=== PATIENT | female | born 1970 | race Caucasian/White ===

== ENCOUNTER 2018-04-01 14:29 | Outpatient (REF) | payer MEDICAID, SELFPAY ==
[2018-04-01 18:49] LABS: ALT 36 U/L (12-78); AST 16 U/L (15-37); Albumin 3.8 g/dL (3.4-5.0); Alkaline Phosphatase 82 U/L (46-116); Anion Gap 11.5 mmol/L (3-11); BUN 14 mg/dL (7-18); Bilirubin, Total 0.4 mg/dL (0.2-1.0); CO2 26.5 mmol/L (21.0-32.0); CREATININE 0.63 mg/dL (0.55-1.02); Chloride 101 mmol/L (98-107); Glucose 82 mg/dL (70-100); Potassium 4.1 mmol/L (3.5-5.1); Sodium 139 mmol/L (136-145); Total Protein 7.3 g/dL (6.4-8.2)
[2018-04-01 19:00] LABS: Abs Immature Grans 0.03 k/cumm (0.0-0.09); Absolute Basophil Count 0.03 k/cumm (0.0-0.2); Absolute Eosinophil Count 0.05 k/cumm (0.0-0.7); Absolute Lymphocyte Count 2.31 k/cumm (1.2-3.4); Basophils % 0.2; Eosinophils % 0.3; HGB 14.4 g/dL (12.0-15.5); Immature Grans % 0.2; Lymphocytes % 14.3; Mean Corp. HGB Concentration 34.3 g/dL (32.0-36.0); Mean Corpuscular Hemoglobin 32.5 pg (27.0-33.0); Mean Corpuscular Volume 94.8 fL (80-95); Monocytes % 8.9; Neutrophils % 76.1; Platelet Count 270 x1000/uL (130-400); RBC 4.43 m/cumm (4.00-5.20); RBC Distribution Width 13.6 % (11.7-14.6); White Blood Cell Count 16.15 k/cumm (4.4-10.8)
[2018-04-01 19:29] LABS: Absolute Monocyte Count 1.44 k/cumm (0.11-0.7); Absolute Neutrophil Count 12.29 k/cumm (1.2-6.7)
[2018-04-01 21:04] LABS: Hemoglobin A1C 5.5 % (4.5-6.2)
== END 2018-04-01 14:49 ==
LOC: NCHCN 14:29
PROVIDERS: PCP Nurse Practitioner; Visit Provider Nurse Practitioner
DX: R63.4 Abnormal weight loss (principal)
CPT/HCPCS: 80053; 83036; 84443; 85025

== ENCOUNTER 2018-04-08 00:55 | Outpatient (CLI) | payer MEDICAID, SELFPAY ==
--- NOTE | 2018-04-08 12:25 | DI.MAMMO_ITS ---
SYMPTOMS/DIAGNOSIS: BREAST CA SCREENING, Z12.39 MAMMOGRAMS: Mammograms were interpreted according to the usual protocol including computer analysis with CAD system, tomosynthesis and C view imaging. Comparison is with the prior examinations. No masses or microcalcifications are seen. There is nothing to suggest malignancy. IMPRESSION: Negative mammogram. Routine screening is recommended. Category 1 , breast density D. MQSA ASSESSMENT OF FINDINGS: Negative. Category 1. Patient will receive a letter notifying them of these results. BI-RADS category D. The breasts are extremely dense, which lowers the sensitivity of mammography.
== END 2018-04-08 01:15 ==
PROVIDERS: PCP Nurse Practitioner; Visit Provider Nurse Practitioner
DX: Z12.31 Encounter for screening mammogram for malignant neoplasm of breast (principal)
CPT/HCPCS: 77063; 77067

== ENCOUNTER 2019-01-01 08:51 | Outpatient (CLI) | payer MEDICAID, SELFPAY | END 2019-01-01 09:11 | PROVIDERS: PCP Nurse Practitioner; Visit Provider Nurse Practitioner Family | DX: F11.20 Opioid dependence, uncomplicated (principal) | CPT/HCPCS: 93005; 93010 ==

== ENCOUNTER 2019-03-25 10:48 | Outpatient (REF) | payer MEDICAID, SELFPAY ==
[2019-03-25 19:27] LABS: Abs Immature Grans 0.03 k/cumm (0.0-0.09); Absolute Basophil Count 0.03 k/cumm (0.0-0.2); Absolute Eosinophil Count 0.19 k/cumm (0.0-0.7); Absolute Lymphocyte Count 1.58 k/cumm (1.2-3.4); Absolute Monocyte Count 0.96 k/cumm (0.11-0.7); Absolute Neutrophil Count 10.18 k/cumm (1.2-6.7); Basophils % 0.2; Eosinophils % 1.5; HCT 40.7 % (36.0-46.0); Immature Grans % 0.2; Lymphocytes % 12.2; Mean Corp. HGB Concentration 34.4 g/dL (32.0-36.0); Mean Corpuscular Hemoglobin 32.1 pg (27.0-33.0); Mean Corpuscular Volume 93.3 fL (80-95); Mean Platelet Volume 9.8 fL (8.0-11.0); Monocytes % 7.4; Neutrophils % 78.5; Platelet Count 273 x1000/uL (130-400); RBC 4.36 m/cumm (4.00-5.20); RBC Distribution Width 13.5 % (11.7-14.6); White Blood Cell Count 12.97 k/cumm (4.4-10.8)
[2019-03-25 19:54] LABS: ALT 17 U/L (14-59); AST 18 U/L (15-37); Albumin 3.6 g/dL (3.4-5.0); Alkaline Phosphatase 100 U/L (46-116); Anion Gap 11.8 mmol/L (3-11); BUN 5 mg/dL (7-18); Bilirubin, Total 0.4 mg/dL (0.2-1.0); CO2 28.2 mmol/L (21.0-32.0); CREATININE 0.56 mg/dL (0.55-1.02); Calcium 8.9 mg/dL (8.5-10.1); Chloride 102 mmol/L (98-107); Glucose 98 mg/dL (70-100); Potassium 3.5 mmol/L (3.5-5.1); Sodium 142 mmol/L (136-145); Total Protein 7.1 g/dL (6.4-8.2)
== END 2019-03-25 11:08 ==
LOC: NCHCN 10:48
PROVIDERS: PCP Nurse Practitioner; Visit Provider Nurse Practitioner
DX: R53.83 Other fatigue (principal); R63.4 Abnormal weight loss
CPT/HCPCS: 80053; 84443; 85025

== ENCOUNTER 2019-03-25 17:27 | Emergency (ER) | payer MEDICAID, SELFPAY ==
--- NOTE | 2019-03-25 18:01 | ED.GENADUL_ITS ---
Discharge Plan Disposition Patient Disposition: HOME Condition: Improving Discharge Details Chief Complaint: Laceration Clinical Impression: Laceration of hand, left Primary Care Provider: Lorie Centeno ED Provider: Chapo Mcbride Home Meds and New Rx's Prescriptions: Continued amitriptyline 75 MG tablet 75 mg PO TAKE TWO TABS AT HS RF: 0 promethazine [Phenergan] 25 MG/1 ML solution 25 mg PO Q6H PRN RF: 0 ketotifen fumarate 5 ML drops 1 drp Ophthalmic PRN RF: 0 lysine 1,000 MG tablet 1,000 mg PO DAILY RF: 0 cetirizine 10 MG tablet 10 mg PO DAILY RF: 0 diltiazem HCl 240 MG capsule,extended release 24 hr 240 mg PO DAILY RF: 0 hydrocortisone 30 GM ointment 1 - 2 ea Topical DAILY PRN PRNRF: 0 clobetasol 15 GM cream 1 ea Topical BID PRN PRNRF: 0 omeprazole 40 MG capsule,delayed release(DR/EC) 40 mg PO DAILY RF: 0 propranolol 10 MG tablet 10 mg PO BID RF: 0 Discharge Instructions Instructions: Laceration (ED) Additional Instructions: Return in 7 to 10 days time for suture removal. Return sooner if you have a fever, foul-smelling discharge from the wound, redness or swelling, or any other acute concerns. Continue your regular medications. May use Tylenol if needed for pain. Medical Decision Making 48-year-old female cut her left hand webbing between the index and thumb on the volar surface at home on broken porcelain. Her tetanus is up-to-date. Anesthetized, irrigated, examined in a bloodless field without evidence of foreign body. Repaired with 6 interrupted sutures. Dressed. Patient stable for discharge to home. She understands homecare/return instructions. HPI General Mode of arrival: ambulatory . Date/Time Provider Initiated Documentation: 03/25/19 17:57 . Limitations to Documentation: no limitations . Information obtained by: patient . History of Present Illness 48 year old F presents to the emergency department with the chief complaint of Left hand laceration, no numbness or tingling, no weakness, Quality is described as dull and constant, and is localized to the left and upper extremity. Patient reports no radiation. Patient started experiencing this minute(s) and it has been constant. No relieving factors improve symptom(s), No exacerbating factors reported . Patient did receive the following treatments prior to arrival, other (Pressure at home) Related Data Home Medications Medication Instructions Recorded Confirmed amitriptyline 75 mg PO TAKE TWO TABS AT HS 10/13/12 04/09/14 tab-cap promethazine [Phenergan] 25 mg PO Q6H PRN ml 10/13/12 04/09/14 cetirizine 10 mg PO DAILY 10/12/13 04/09/14 diltiazem HCl 240 mg PO DAILY 10/12/13 04/09/14 clobetasol 1 ea TOPICAL BID PRN PRN 04/09/14 04/09/14 hydrocortisone 1 - 2 ea TOPICAL DAILY PRN PRN 04/09/14 04/09/14 omeprazole 40 mg PO DAILY 04/13/14 04/13/14 propranolol 10 mg PO BID 04/13/14 04/13/14 ketotifen fumarate 1 drp OPHTHALMIC PRN drp 05/31/14 lysine 1,000 mg PO DAILY 03/29/17 Allergies Allergy/AdvReac Type Severity Reaction Status Date / Time codeine Allergy Intermediate Unverified 03/29/17 08:20 rizatriptan benzoate Allergy Intermediate Unverified 03/29/17 08:20 [From [facility]] hydrocodone AdvReac Intermediate vomiting Unverified 03/29/17 08:20 Review of Systems Review of Systems Narrative: 6 systems reviewed and otherwise negative. Tetanus up-to-date 2010 [facility] Medical History Abnormal uterine bleeding GERD (gastroesophageal reflux disease) Migraine Surgical History Biopsy of breast Benign R breast. Followed at [facility] [place]. Extraction of cataract each eye Family History (Updated 09/15/15 @ 20:39 by Elly Santamaria MD) Other Colon cancer Social History Smoking/Tobacco Use Status: Former Tobacco Use Drug use: Never Exam Narrative Exam Narrative: GEN: awake, alert, oriented 3. Pleasant, well groomed, interactive. HEAD: Normocephalic, atraumatic EXT: Full ROM, no edema, no rash. Thumb a position intact both hands. The left hand at the inter-webbing on the volar surface in between thumb and index finger has approximately 4 cm linear laceration. Neuro: Grossly normal neurologic exam, conversant, interactive. Psych: Speech fluent, thoughts congruent, affect normal Procedures Laceration Laceration 1: Site: hand Side (If applicable): left Size (cm): 3 Description: linear Depth: simple, single layer Local Anesthetic: Lidocaine 1% Amount of anesthesia used (mL): 2 Pre-repair: wound explored, irrigated extensively and deep structures intact Skin layer closed with: nylon Size (cm): 4-0 Number of sutures: 6 Technique: simple, interrupted
[2019-03-25 18:23] VITALS: BP 140/70; PULSE 101; RESP 16; TEMP 37.4; O2SAT 98
== END 2019-03-25 18:35 | disposition home or self-care (01) ==
PROVIDERS: Emergency Provider Emergency Medicine; PCP Nurse Practitioner
DX: S61.412A Laceration without foreign body of left hand, initial encounter (principal); W45.8XXA Other foreign body or object entering through skin, initial encounter
CPT/HCPCS: 12002

== ENCOUNTER 2019-04-05 08:00 | Emergency (ER) | payer MEDICAID, SELFPAY ==
[2019-04-05 08:15] VITALS: BP 114/43; PULSE 65; RESP 16; TEMP 36.5; O2SAT 97
--- NOTE | 2019-04-05 08:25 | NUR.NOTE ---
follow up referral [facility] to [facility]Nursing Note:
--- NOTE | 2019-04-05 08:31 | W.ED.GENAD ---
Discharge Plan Disposition Patient Disposition: HOME Condition: Improving Discharge Details Chief Complaint: Recheck Clinical Impression: Dehiscence of wound Primary Care Provider: Lorie Centeno ED Provider: Chapo Mcbride Home Meds and New Rx's Prescriptions: Continued amitriptyline 75 MG tablet 75 mg PO TAKE TWO TABS AT HS RF: 0 promethazine [Phenergan] 25 MG/1 ML solution 25 mg PO Q6H PRN RF: 0 ketotifen fumarate 5 ML drops 1 drp Ophthalmic PRN RF: 0 lysine 1,000 MG tablet 1,000 mg PO DAILY RF: 0 cetirizine 10 MG tablet 10 mg PO DAILY RF: 0 diltiazem HCl 240 MG capsule,extended release 24 hr 240 mg PO DAILY RF: 0 hydrocortisone 30 GM ointment 1 - 2 ea Topical DAILY PRN PRNRF: 0 clobetasol 15 GM cream 1 ea Topical BID PRN PRNRF: 0 omeprazole 40 MG capsule,delayed release(DR/EC) 40 mg PO DAILY RF: 0 propranolol 10 MG tablet 10 mg PO BID RF: 0 Discharge Instructions Additional Instructions: As we discussed, we will get to follow-up in general surgery clinic for wound check in approximately 5 to 7 days time. The office #[id number]. Return if you develop a fever, foul-smelling discharge from the wound or any other acute concerns. Keep current dressing in place 72 to 96 hours, then may redress as we discussed. The wick may fall out at that time. Keep the area clean and dry. Medical Decision Making 48-year-old female seen by me on March 25 for left hand laceration between the index finger and thumb. It was repaired with interrupted sutures. She states the sutures became dislodged after approximately 7 days time, she removed an additional 3 at home yesterday, this morning she had small wound dehiscence with a gap. No discharge, bleeding, fever. The wound is well-appearing, does not appear infected. I have placed a small non-iodoform wick, dressed with Xeroform and then Steri-Strips. She will leave this in place for 72 to 96 hours, then perform dressing change at home. She understands that what may fall out at this time. I discussed with her home care over the next week with a plan to obtain a follow-up in general surgery clinic for likely one-time wound check. She understands return precautions to the ER. HPI General Mode of arrival: ambulatory. Date/Time Provider Initiated Documentation: 04/05/19 08:05. Limitations to Documentation: no limitations. Information obtained by: patient and family. History of Present Illness 48 year old F presents to the emergency department with the chief complaint of Wound dehiscence, described as mild, and is localized to the left and upper extremity. Patient started experiencing this day(s) and it has been constant. No relieving factors improve symptom(s), No exacerbating factors reported . Patient notes denies fever/chills and rash. Patient did receive the following treatments prior to arrival, none Related Data Home Medications Medication Instructions Recorded Confirmed amitriptyline 75 mg PO TAKE TWO TABS AT HS 10/13/12 04/05/19 tab-cap promethazine [Phenergan] 25 mg PO Q6H PRN ml 10/13/12 04/05/19 cetirizine 10 mg PO DAILY 10/12/13 04/05/19 diltiazem HCl 240 mg PO DAILY 10/12/13 04/05/19 clobetasol 1 ea TOPICAL BID PRN PRN 04/09/14 04/05/19 hydrocortisone 1 - 2 ea TOPICAL DAILY PRN PRN 04/09/14 04/05/19 omeprazole 40 mg PO DAILY 04/13/14 04/05/19 propranolol 10 mg PO BID 04/13/14 04/05/19 ketotifen fumarate 1 drp OPHTHALMIC PRN drp 05/31/14 04/05/19 lysine 1,000 mg PO DAILY 03/29/17 04/05/19 Allergies Allergy/AdvReac Type Severity Reaction Status Date / Time codeine Allergy Intermediate Unverified 03/29/17 08:20 rizatriptan benzoate Allergy Intermediate Unverified 03/29/17 08:20 [From [facility]] hydrocodone AdvReac Intermediate vomiting Unverified 03/29/17 08:20 General Stated Complaint: Recheck AMARA: 4 Review of Systems Narrative: No fever, discharge, redness. PFSH Family History (Updated 09/15/15 @ 20:39 by Elly Santamaria MD) Other Colon cancer Social History Smoking/Tobacco Use Status: Former Tobacco Use Drug use: Never Do you feel safe at home: Yes Do you feel safe in your relationship?: Yes Exam Narrative Exam Narrative: GEN: awake, alert, oriented 3. Pleasant, well groomed, interactive. HEAD: Normocephalic, atraumatic ENT: Mucous membranes moist, oropharynx unremarkable, External ear exam unremarkable EYES: PERRL, EOMI EXT: Full ROM, no edema, no rash. The left hand at the webbing of the index finger and thumb shows small wound dehiscence. Granulation tissue appears to be forming. There is no discharge, erythema, nor fluctuance. Motor and sensory testing normal. Neuro: Grossly normal neurologic exam, conversant, interactive. Psych: Speech fluent, thoughts congruent, affect normal Course Vital Signs Vital signs: Vital Signs Temperature 36.5 C 04/05/19 08:15 Pulse 65 04/05/19 08:15 Respiratory Rate 16 04/05/19 08:15 Blood Pressure 114/43 L 04/05/19 08:15 Pulse Oximetry 97 04/05/19 08:15 Temperature 36.5 C 04/05/19 08:15 Temperature Source Skin 04/05/19 08:15 Pulse 65 04/05/19 08:15 Respiratory Rate 16 04/05/19 08:15 Respiratory Effort Non-Labored 04/05/19 08:15 Blood Pressure 114/43 L 04/05/19 08:15 Blood Pressure Position Sitting 04/05/19 08:15 Pulse Oximetry 97 04/05/19 08:15 Oxygen Delivery Method Room Air 04/05/19 08:15 Oxygen Flow Rate 0 04/05/19 08:15 Pain Level 5 04/05/19 08:15
== END 2019-04-05 08:40 | disposition home or self-care (01) ==
PROVIDERS: Emergency Provider Emergency Medicine; PCP Nurse Practitioner
DX: T81.33XA Disruption of traumatic injury wound repair, initial encounter (principal); S61.412A Laceration without foreign body of left hand, initial encounter; W45.8XXA Other foreign body or object entering through skin, initial encounter
CPT/HCPCS: 99281

== ENCOUNTER 2019-07-01 14:43 | Outpatient (REF) | payer MEDICAID, SELFPAY ==
[2019-07-01 16:07] LABS: Abs Immature Grans 0.01 k/cumm (0.0-0.09); Absolute Basophil Count 0.03 k/cumm (0.0-0.2); Absolute Eosinophil Count 0.22 k/cumm (0.0-0.7); Absolute Lymphocyte Count 1.76 k/cumm (1.2-3.4); Absolute Monocyte Count 0.55 k/cumm (0.11-0.7); Absolute Neutrophil Count 2.64 k/cumm (1.2-6.7); Basophils % 0.6; Eosinophils % 4.2; HCT 44.5 % (36.0-46.0); Immature Grans % 0.2 %; Lymphocytes % 33.8; Mean Corp. HGB Concentration 33.7 g/dL (32.0-36.0); Mean Corpuscular Hemoglobin 32.8 pg (27.0-33.0); Mean Corpuscular Volume 97.4 fL (80-95); Mean Platelet Volume 9.5 fL (8.0-11.0); Monocytes % 10.6; Neutrophils % 50.6; Platelet Count 296 x1000/uL (130-400); RBC 4.57 m/cumm (4.00-5.20); RBC Distribution Width 13.6 % (11.7-14.6); White Blood Cell Count 5.21 k/cumm (4.4-10.8)
[2019-07-01 16:19] LABS: ALT 31 U/L (14-59); AST 15 U/L (15-37); Albumin 3.6 g/dL (3.4-5.0); Alkaline Phosphatase 85 U/L (46-116); Anion Gap 9.4 mmol/L (3-11); BUN 8 mg/dL (7-18); Bilirubin, Total 0.3 mg/dL (0.2-1.0); CO2 29.6 mmol/L (21.0-32.0); Chloride 102 mmol/L (98-107); Glucose 120 mg/dL (74-106); Potassium 3.9 mmol/L (3.5-5.1); Sodium 141 mmol/L (136-145); Total Protein 7.5 g/dL (6.4-8.2)
[2019-07-02 10:15] LABS: HBs Antibody, Quant <3.1 mIU/mL (See Note); Hepatitis B Surface Ab Negative (See Note); Hepatitis B Surface Ag Negative (Negative)
[2019-07-02 10:22] LABS: HIV-1/2 Ag & Ab Screen Negative (Negative)
[2019-07-02 11:05] LABS: Hep A Total Ab w Rflx IgM Negative (Negative); Hep B Core Antibody Negative (Negative); Hepatitis C Ab w Rflx HCV PCR Negative (Negative)
[2019-07-02 11:45] LABS: Syphilis Serology (RPR) Negative (Negative)
== END 2019-07-01 15:03 ==
LOC: LBO 14:43
PROVIDERS: PCP Nurse Practitioner; Visit Provider Nurse Practitioner Family
DX: F11.20 Opioid dependence, uncomplicated (principal); Z79.899 Other long term (current) drug therapy; Z11.4 Encounter for screening for human immunodeficiency virus [HIV]; Z11.59 Encounter for screening for other viral diseases
CPT/HCPCS: 80053; 86704; 86706; 86709; 86803; 87340; 87389; 85025; 86592

== ENCOUNTER 2020-04-11 15:52 | Emergency (ER) | payer MEDICAID, SELFPAY ==
[2020-04-11 15:56] VITALS: BP 158/67; PULSE 91; RESP 16; TEMP 36.9; O2SAT 98
[2020-04-11 16:35] LABS: Bilirubin Negative (Negative); Blood Trace-intact (Negative); Clarity Clear (Clear); Glucose Negative (Negative); Ketones Negative (Negative); Leukocyte Esterase Negative (Negative); Nitrite Negative (Negative); Urobilinogen 0.2 EU/dL (Up TO 0.2)
[2020-04-11] MEDS: Normal Saline 1,000 ML 1000 ML IV (16:35)
[2020-04-11 16:42] LABS: Bacteria Negative HPF (Negative); C & S Indicated? No; Casts Negative LPF (Negative); Crystals Negative HPF (Negative); Epithelial Cells Few HPF (Negative); Mucus Negative (Negative); RBC 0-2 HPF (0-2); WBC 0-2 HPF (0-5)
[2020-04-11 16:47] LABS: *AMPHETAMINES SCREEN URINE Negative (Negative); *BARBITURATES SCREEN URINE POSITIVE (Negative); *BENZODIAZEPINES SCREEN URINE Negative (Negative); Cannabinoids THC Negative (Negative); Cocaine Screen,Urine POSITIVE (Negative); METHADONE URINE SCREEN POSITIVE (Negative); OPIATES URINE SCREEN Negative (Negative)
[2020-04-11 16:50] LABS: Abs Immature Grans 0.03 10^3/uL (0.0-0.06); Absolute Basophil Count 0.04 10^3/uL (0.0-0.2); Absolute Eosinophil Count 0.02 10^3/uL (0.0-0.7); Absolute Lymphocyte Count 1.04 10^3/uL (1.2-3.4); Absolute Monocyte Count 0.49 10^3/uL (0.1-0.8); Absolute Neutrophil Count 4.56 10^3/uL (1.2-6.7); Basophils % 0.6; Eosinophils % 0.3; HCT 45.7 % (36.0-46.0); HGB 15.5 g/dL (11.2-15.7); Immature Grans % 0.5; Lymphocytes % 16.8; MCH 31.6 pg (27.0-33.0); MCHC 33.9 % (32.0-36.0); MCV 93.1 fL (80-95); MPV 9.2 fL (8.0-11.0); Monocytes % 7.9; Neutrophils % 73.9; Nucleated RBC 0 %; Platelet Count 345 10^3/uL (130-400); RBC 4.91 10^6/uL (3.93-5.22); RDW 12.9 % (11.7-14.6); RDW-SD 43.8 fL; WBC 6.18 10^3/uL (4.4-10.8)
--- NOTE | 2020-04-11 16:57 | ED.GENADUL_ITS ---
Discharge Plan Disposition Patient Disposition: [facility] INPATIENT Condition: Stable Discharge Details Clinical Impression: Major depression Primary Care Provider: Bia Guadarrama ED Provider: Chapo Mcbride Home Meds and New Rx's Prescriptions: No Action polyethylene glycol 3350 [Miralax] 17 gram/dose powder 17 gm PO BID Qty: 850 RF: 1 betamethasone dipropionate 0.05 % cream 1 applic TP BID PRN (Reason: eczema) Qty: 45 RF: 2 amitriptyline 75 mg tablet 150 mg PO QHS Qty: 180 RF: 1 mirtazapine [Remeron] 15 mg tablet 15 mg PO QHS Qty: 90 RF: 3 fluoxetine 10 mg capsule 10 mg PO QAM Qty: 90 RF: 3 cetirizine 10 mg tablet 10 mg PO BID Qty: 60 RF: 2 ketotifen fumarate 5 ML drops 1 drp Ophthalmic PRN RF: 0 fluticasone propionate [Flonase Allergy Relief] 50 mcg/actuation spray,suspension 1 spray VLADIMIR DAILY RF: 0 cholecalciferol (vitamin D3) 25 mcg (1,000 unit) tablet 1,000 unit PO DAILY RF: 0 methadone 10 mg/5 mL solution 115 mg PO DAILY RF: 0 hydrocortisone 30 GM ointment 1 - 2 ea Topical DAILY PRN PRNRF: 0 omeprazole 40 MG capsule,delayed release(DR/EC) 40 mg PO DAILY RF: 0 Medical Decision Making <LV Smith - Last Filed: 04/12/20 16:08> Tatyana is a pleasant 49 year old female presenting today with c/c of increased depression with suicidal thoughts. She states that this has been a problem for the past year but particularly over the past few months with exacerbatio last few days. Sung has hx of drug abuse. Is on methadone, dosed prior to coming in. States that she had a relapse 4 months ago, at the same time her fiance left. States she lives alone, has grown children that visit occasionally. She states she does not have a plan but I do not want to wake up and just wish I would . She is on antidepressants, was last seen by PCP 2 months ago. She states taht she last used fentanyl yesterday, has been cutting back over the past several days. REports that since cutting back, she has been having body aches, particularly cramps in her BLE. Also states she has been having loose stools. Denies fevers/chills, no N/V. Denies abdominal pain. No rash. She appe ars dry. Will obtain baseline labs, hydrate the patient. Plan to obtain consultation. Spoke with who evaluated the patient. The concern is that hte patient would be alone at home. Aside from not having a defined plan on how to commit suicide, she scores high on scoring system. Labs reviewed, CBC WNL, potassium low at 3.1, will replenish here. Alk phos elevated at 127. TSH normal. No ETOH. UDS positive for methadone, barbiturates, tricyclics and cocaine. Patient, MH and myself discussed treatment options. We are concerned that she will continue to use drugs if she is discharged home which will likely worsen her depression. This is also a likely method of suicide. Patient is agreeable to staying for treatment of her depressiion and drug abuse. She is voluntary. Referrals have been sent to local hospitals. Patient eating in the room, comfortable. She states her muscle spasms are improved with hydratation and replenishment of her potassium. Limited beds upstairs, will keep in department over night. CPSO at bedside. manager solution aware, plan in place. Patient began to endorse worsening symptoms again. Appears more agitated and anxious. she states that her leg spasms are worsening. Will give her evening meds, nicotine and Ibuprofen and Tylenol for discomfort. No improvement. She is requesting discharge. Consulted with . She was able to get the patient to agree to stay voluntarily. 1mg Ativan given to help with anxiety. ATivan had very short affect. Will give PO valium, hoping this will also help with her muscle spasms. At the end of my shift, care transitioned to Dr. Awad. Patient continues to be very agitated and anxious. She is pacing and clawing at her skin. She still wants to stay and get help. Patient is withdrawing from the Fentanyl she had been abusing over the past 4months. At this time, to allow her to be successful to get her treatment for suicidality as well as opiate abuse, will give another dose of methadone. She used 10mg early today, prior to arrival, will give 5mg now. <Edgardo Awad, - Last Filed: 04/13/20 07:06> 04/12/2020 7 AM Patient was signed out to me by my colleague Essence Carreon. Please refer to her documentation. Pending placement. Patient remained stable throughout the night. We did give IM benzodiazepine to help her sleep. It was at her request. No other complaints at this time. Care will be transitioned to my colleague Chapo Mcbride. 04/13/2020 7 AM Care was transitioned from Dr. Mcbride to myself. Please refer to the original HPI, physical exam and assessment and plan. Patient did very well throughout the evening here. I did put all of her regular daily scheduled medications in on a regular scheduled basis. She has had no complaints, she has been doing well, she has been resting urinating and interacting well. She still does wish for help and transfer to [place] when available. Her Covid test did come back negative during the evening. We have contacted mental health and they will be reaching out to [place] for transfer. Expectant transfer this morning. The case will be signed out to my colleague Dr. Chapo Mcbride for final disposition. <Chapo Mcbride MD - Last Filed: 04/13/20 09:40> Patient signout from Dr. Awad. Please see CT and Essence Carreon's note regarding details of initial presentation, plan of care. Patient's medications were reconciled with her primary care physician. She takes methadone 76 mg twice daily. She was also given her daily dose of fluoxetine. A repeat, or more rapid Covid test was obtained. She was evaluated by mental health services. She has had referrals placed to inpatient psychiatric facilities. Patient had some anxiety and transient chest tightness with an unremarkable EKG in the dinnertime hours. She received Valium. She was tentatively admitted to the medicine service pending final disposition. A bed has not yet been made available. I will sign the patient out to the oncoming physician, Dr. Awad for the evening. Addendum 04/13: Patient rested overnight without difficulty, had some recurrent anxiety approximately 9 AM and was given additional value. Her potassium was rechecked at 3.5 this morning. She is excepted to [facility] in transfer. HPI <LV Smith - Last Filed: 04/12/20 16:08> General Mode of arrival: EMS . Date/Time Provider Initiated Documentation: 04/11/20 15:59 . Limitations to Documentation: no limitations . Information obtained by: patient, EMS, RN notes reviewed and old records reviewed . History of Present Illness 49 year old F presents to the emergency department with the chief complaint of increased depression, generalized feeling unwell, described as severe and similar to prior episodes (worsening over the past year), Quality is described as aching (generalized body aches, muscle spasm in BLE), Patient started experiencing this day(s) and it has been constant (worsening ). No relieving factors improve symptom(s), No exacerbating factors reported . Patient notes loss of appetite and malaise; denies chest pain, cough, fever/chills, nausea/vomiting, shortness of breath and syncope. Patient did receive the following treatments prior to arrival, other (Methadone prior ot arrival) Related Data Home Medications Medication Instructions Recorded Confirmed hydrocortisone 1 - 2 ea TOPICAL DAILY PRN PRN 04/09/14 04/11/20 omeprazole 40 mg PO DAILY 04/13/14 04/11/20 ketotifen fumarate 1 drp OPHTHALMIC PRN drp 05/31/14 04/11/20 cholecalciferol (vitamin D3) 25 1,000 unit PO DAILY 07/23/19 04/11/20 mcg (1,000 unit) tablet fluticasone propionate 50 1 spray VLADIMIR DAILY 07/23/19 04/11/20 mcg/actuation nasal spray,suspension methadone 10 mg/5 mL oral solution 115 mg PO DAILY ml 07/23/19 04/11/20 betamethasone dipropionate 0.05 % 1 applic TP BID PRN #45 gm 10/14/19 04/11/20 topical cream polyethylene glycol 3350 17 17 gm PO BID #850 gm 10/14/19 04/11/20 gram/dose oral powder cetirizine 10 mg tablet 10 mg PO BID #60 tab 12/01/19 04/11/20 amitriptyline 75 mg tablet 150 mg PO QHS #180 tab 12/16/19 04/12/20 fluoxetine 10 mg capsule 10 mg PO QAM #90 tab-cap 01/06/20 04/11/20 mirtazapine 15 mg tablet 15 mg PO QHS #90 tab 01/06/20 04/11/20 Previous Rx's Medication Instructions Recorded betamethasone dipropionate 0.05 % 1 applic TP BID PRN #45 gm 10/14/19 topical cream polyethylene glycol 3350 17 17 gm PO BID #850 gm 10/14/19 gram/dose oral powder cetirizine 10 mg tablet 10 mg PO BID #60 tab 12/01/19 amitriptyline 75 mg tablet 150 mg PO QHS #180 tab 12/16/19 fluoxetine 10 mg capsule 10 mg PO QAM #90 tab-cap 01/06/20 mirtazapine 15 mg tablet 15 mg PO QHS #90 tab 01/06/20 Allergies Allergy/AdvReac Type Severity Reaction Status Date / Time rizatriptan benzoate Allergy Intermediate Verified 04/11/20 16:03 [From [facility]] codeine AdvReac Intermediate nausea Verified 04/11/20 16:03 hydrocodone AdvReac Intermediate vomiting Verified 04/11/20 16:03 General Stated Complaint: PsychEval AMARA: 2 Review of Systems <LV Smith - Last Filed: 04/12/20 16:08> Constitutional Constitutional: Reports as per HPI, Denies chills, Denies fatigue, Denies fever(s), Denies headache(s) and Denies weakness Eyes Eyes: Denies change in vision ENT Ears, Nose, Mouth, and Throat: Denies headache(s) Cardiovascular Cardiovascular: Reports as per HPI, Denies chest pain, Denies lightheadedness, Denies dyspnea and Denies dyspnea on exertion Respiratory Respiratory: Reports as per HPI, Denies cough, Denies dyspnea and Denies dyspnea on exertion Gastrointestinal Gastrointestinal: Reports as per HPI, Denies abdominal pain, Reports change in bowel habits (3 diarrhea), Denies nausea and Denies vomiting Musculoskeletal Musculoskeletal: Reports as per HPI Integumentary/Breasts Skin/Breast: Reports as per HPI and Denies rash Neurologic Neurologic: Denies abnormal movements, Denies abnormal speech, Reports behavioral changes, Denies headache(s), Denies memory loss, Denies paresthesias and Denies weakness Psychiatric Psychiatric: Reports abnormal sleep pattern, Reports anxiety, Reports behavioral changes, Reports change in appetite, Reports depression, Denies auditory hallucinations, Reports hopelessness, Reports anhedonia, Denies memory loss, De nies visual hallucinations, Denies homicidal ideation and Reports suicidal ideation Endocrine Endocrine: Denies fatigue PFSH <LV Smith - Last Filed: 04/12/20 16:08> Medical History Abnormal uterine bleeding (09/08/15) Anxiety BMI less than 19,adult (03/29/17) Patient had 31 pound weight loss over the course of the year. Not dieting. TSH free T4 to be obtained. Depression Fatigue Gastroesophageal reflux disease without esophagitis (09/08/15) History of substance abuse Hyperlipidemia IUD (intrauterine device) in place (09/28/15) Mood changes (03/29/17) after insertion of Mirena IUD in 2015. removed 03/2017. Oral herpes simplex infection PTSD (post-traumatic stress disorder) Surgical History History of bilateral cataract extraction History of breast biopsy Benign (R) Breast, Followed at [facility] Open wound of left hand Family History Sister Substance abuse Lung cancer Depression Anxiety Brother Substance abuse Asthma Depression Anxiety Mother Anxiety Colon cancer Depression Daughter Asthma Other Heart disease Social History Smoking/Tobacco Use Status: Current every day Smoking risk assessment performed?: Yes Alcohol Intake: never Drug use: Occasionally Substance use type: marijuana and opiates Counseling provided: provider counseling and other Details: Duy HAINES q2w Details: No IV Drug Use. A few bags fentanyl daily recently 04/11/20 Adopted: No Caregiver/Support person: No Foster care: No Household members: significant other Housing: house Number of Children: 3 Communication Needs: None Do you need help understanding health information?: Never current occupation: UnEmployed Sexually active: Yes Do you think of yourself as: straight/heterosexual Current gender identity: female What is your relationship status?: Panel score (0-1 are the most socially isolated patients): 0 What type of physical activity do you participate in: none Seatbelt use: always Drive intox or ride w/intox hi lo driver: No Water heater temp set <120 deg: Yes Working smoke detector in home: Yes Fire extinguisher in home: Yes Carbon monox detector in home: Yes Do you feel safe at home: Yes Do you feel safe in your relationship?: Yes Exam <LV Smith - Last Filed: 04/12/20 16:08> Const General: cooperative, healthy appearing, comfortable, well developed, well groomed, in distress mild and anxious Nutritional Appearance: malnourished and thin Orientation: alert and awake HENNC Mouth: mucous membranes dry (appears dry) Throat: posterior oropharynx normal Eyes General: appearance normal, both eyes and all related structures Resp Effort & Inspection: normal respiratory effort, able to speak in complete sentences and no respiratory distress Auscultation: clear to auscultation bilaterally, no rales, no rhonchi and no wheezes Cardio Rate: regular rate Rhythm: regular rhythm Heart Sounds: S1 normal and S2 normal GI Inspection: normal to inspection Palpation: soft, no hepatosplenomegaly, not rigid and nontender Percussion: normal to percussion Auscultation: normal bowel sounds Skin General skin exam: no rashes or lesions noted Trauma: no lacerations or abrasions Neuro General: patient alert and patient awake Cognition: normal cognition Speech: speech normal Gait: normal gait Extrem General: normal to inspection, capillary refill normal, no pedal edema and no calf tenderness Psych Appearance: grossly normal and well kempt Mental Status: mental status grossly normal Speech and Movement: speech and movement normal Mood: anxious mood Affect: sad Attitude: cooperative Thought Process: normal Thought Content: suicidality Insight: limited Judgment: limited Course <LV Smith Last Filed: 04/12/20 16:08> Vital Signs Vital signs: Vital Signs Temperature 36.9 C 04/11/20 15:56 Pulse 91 H 04/11/20 15:56 Respiratory Rate 16 04/11/20 15:56 Blood Pressure 158/67 H 04/11/20 15:56 Pulse Oximetry 98 04/11/20 15:56 Temperature 36.9 C 04/11/20 15:56 Temperature Source Skin 04/11/20 15:56 Pulse 91 H 04/11/20 15:56 Respiratory Rate 16 04/11/20 15:56 Respiratory Effort Non-Labored 04/11/20 16:00 Blood Pressure 158/67 H 04/11/20 15:56 Blood Pressure Position Supine 04/11/20 15:56 Pulse Oximetry 98 04/11/20 15:56 Oxygen Delivery Method Room Air 04/11/20 15:56 Oxygen Flow Rate 0 04/11/20 15:56 Pain Level 7 04/11/20 15:56 Comment 04/11/20 15:56 Lab/Test Results Lab/Test Results: Laboratory Tests Range/Units 04/11/20 04/11/20 04/11/20 16:30 16:30 16:35 WBC (4.4-10.8) 10^3/uL 6.18 RBC (3.93-5.22) 10^6/uL 4.91 Hgb (11.2-15.7) g/dL 15.5 Hct (36.0-46.0) % 45.7 MCV (80-95) fL 93.1 MCH (27.0-33.0) pg 31.6 MCHC (32.0-36.0) % 33.9 RDW (11.7-14.6) % 12.9 Plt Count (130-400) 10^3/uL 345 MPV (8.0-11.0) fL 9.2 Immature Gran % 0.5 Neutrophils % 73.9 Lymphocytes % 16.8 Monocytes % 7.9 Eosinophils % 0.3 Basophils % 0.6 Nucleated RBC % % 0 Absolute Neutrophils (1.2-6.7) 10^3/uL 4.56 Absolute Lymphocytes (1.2-3.4) 10^3/uL 1.04 L Absolute Monocytes (0.1-0.8) 10^3/uL 0.49 Absolute Eosinophils (0.0-0.7) 10^3/uL 0.02 Absolute Basophils (0.0-0.2) 10^3/uL 0.04 Urine Color (Yellow) Yellow Urine Clarity (Clear) Clear Urine pH (5-8) 7.0 Ur Specific [place] (1.005-1.025) 1.010 Urine Protein (Negative) mg/dL Negative Urine Ketones (Negative) mg/dL Negative Urine Blood (Negative) Trace-intact H Urine Nitrite (Negative) Negative Urine Bilirubin (Negative) Negative Urine Urobilinogen (Up TO 0.2) EU/dL 0.2 Ur Leukocyte Esterase (Negative) Negative Urine RBC (0-2) HPF 0-2 Urine WBC (0-5) HPF 0-2 Ur Epithelial Cells (Negative) HPF Few Urine Crystals (Negative) HPF Negative Urine Bacteria (Negative) HPF Negative Urine Casts (Negative) LPF Negative Urine Mucus (Negative) Negative Ur Culture Indicated? No Urine Glucose (Negative) mg/dL Negative Urine Opiates Screen (Negative) Negative Urine Methadone Screen (Negative) Positive A Ur Barbiturates Screen (Negative) Positive A Ur Tricyclics Screen (Negative) Negative Ur Amphetamines Screen (Negative) Negative U Benzodiazepines Scrn (Negative) Negative Urine Cocaine Screen (Negative) Positive A Ur THC Screen (Negative) Negative POC- Test(urine) Negative Sign Out <LV Smith - Last Filed: 04/12/20 16:08> Sign Out Data: Sign Out Comment: Care transitioned to Dr. Awad. Patient is having opioid withdrawals and is seeking care for suicidal ideations. Plan is for her to inpatient bed in the morning. She has been evaluated x 2 by MH. Last updated by Essence Huerta PA at 04/12/20 00:16 Sign Out Comment: Pending admission for suicidal ideations. Last updated by Edgardo Awad DO at 04/12/20 07:47 Sign Out Comment: Followup final disposition/admission Last updated by Chapo Mcbride MD at 04/12/20 19:04 Sign Out Comment: followup on final disposition. Covid test was negative. Expect To transfer to [place] this morning Last updated by Edgardo Awad DO at 04/13/20 06:59
[2020-04-11 17:14] LABS: Creatine Kinase 53 U/L (26-192)
[2020-04-11 17:15] LABS: Acetaminophen 8 ug/mL (10-30); Salicylate 6.4 mg/dL (2.8-20.0)
[2020-04-11 17:21] LABS: ALT 13 U/L (14-59); AST 11 U/L (15-37); Albumin 3.3 g/dL (3.4-5.0); Alkaline Phosphatase 127 U/L (46-116); Anion Gap 8.5 mmol/L (3-11); BUN 6 mg/dL (7-18); Bilirubin, Total 0.3 mg/dL (0.2-1.0); CO2 29.5 mmol/L (21.0-32.0); CREATININE 0.72 mg/dL (0.55-1.02); Calcium 8.9 mg/dL (8.5-10.1); Chloride 104 mmol/L (98-107); Glucose 108 mg/dL (74-106); Potassium 3.1 mmol/L (3.5-5.1); Sodium 142 mmol/L (136-145); TSH 0.41 uIU/mL (0.36-3.74); Total Protein 7.4 g/dL (6.4-8.2)
[2020-04-11 17:21] LABS: Tricyclic Antidepressants POSITIVE (Negative)
[2020-04-11 17:24] LABS: ETHANOL BLOOD < 3.0 mg/dL (<3)
[2020-04-11] MEDS: POTASSIUM CHLORIDE 20 MEQ/100 ML BAG 50 MEQ IVPB (18:03)
[2020-04-11] MEDS: Potassium Chloride 20 MEQ TABCR PO (18:08)
--- NOTE | 2020-04-11 18:47 | CMSP_ITS ---
- If Service Date Differs Date of service: 04/11/20 Time of Service: 18:47 Care Management Safety Plan Guero presents to the ED today with increased depression, generalized feeling unwell, and suicidal ideation. She does not currently have a plan, but does have access to substances which put her at a high risk for overdose. Guero has a history of PTSD, depression and anxiety. She also has a history of substance use, most recently fentanyl. She has been seeing a counselor at [facility]. Mental health has been paged and is evaluating Guero in the ED. If screener deems patient meets criteria for psychiatric stabilization CM will facilitate interdepartmental huddle with [facility] screener for safety planning considerations and meet with patient to review [facility] policy and safety plan, establish individual wishes for treatment and maintain patient rights. In the interim; please note safety plan below to guide patient care while awaiting further assessment in the ED. SAFETY PLAN: 1. Will remain on suicide precautions and in paper clothes. 2. Will remain in room under direct supervision of one-on-one staff at all times provided by KHUSHI, COMMERCIAL INSURANCE UNDERWRITER wedding coordinator. 3. May have paper cups, plates, finger foods as well as a cardboard spoon with which to eat meals. 4. Follow [facility] Management of the Admitted Behavioral Health Patient policy. 5. Comfort bath system only. 6. No personal belongings. 7. No visitors. 8. Phone contact limited, at the discretion of staff. 9. Due to VOLUNTARY status, if patient wishes to leave [facility], the [facility] ticket worker must be contacted to re-evaluate patient prior to patient exiting the building. If deemed appropriate for inpatient psychiatric care, safety plan will be established with patient, and care team, to adhere to patient goals, identify restrictions based on behavioral status, address nutrition, and determine allowed personal belongings, tools for hygiene and personal care. As well plan will determine level of activity including ambulation, level of supervision, visitors, and determine privileges based on level of acuity, behaviors and level of engagement by patient.
--- NOTE | 2020-04-11 19:26 | PDOC.MHCN ---
Date of service: 04/11/20 Time of Service: 19:27 Mental Health Crisis Note Presenting Issue How did you arrive at the ED and why did you come: Patient arrived at the Ed by ambulance . Her father called them due to his concern of her increased depression. She is having suicidal ideation and increasing thoughts of wanting to go to sleep and not wake up. Precipitating Factors She has had a recent breakup of a relationship, she is a patient at [facility] and admits to recent drug use. Her blood test show positive for methadone, fentanyl, barbituates and cocaine. She has to using fentanyl but denies knowing what else she has taken. She wishes she could just go to sleep and not wake up. Based on the PHQ-9 she is depressed and the CSRS places her at ahigh risk. She has no guns but she has access to drugs and an overdose is how she would make an attempt. She is feeling unwell and sleeping a lot. She would like to feel better and would agree to getting help as an inpatient. Disposition BEHAVIOR: She is calm and cooperative during the ZOOM interview. EYE CONTACT: She addresses the screen and this interviewer. MOOD: Her mood is depressed and tearful. AFFECT: Her affect is flat APPETITE: She reports having a decreased appetite SLEEP(trouble falling/staying asleep: She has trouble falling asleep and sleeping at night. But resport sleeping in the day Plan After discussing the case with Essence Hawthorne it was conlcuded that the patient was in need of a higher level of care to help alleviate depression and possible suicide attempt as she is extremely depressed and has constant sthoughts of wanting to go to sleep and not wake. [facility] and [facility] were contacted by this clinician and will be able to review , there are beds at [place], [facility] is not accepting tonight but would review in the moring. Energy Broker said she would be able to fax over information in the morning to the hospitals as they would be waiting for COVID test before accepting. Signature Clinician's Name/Title: Payton Lindo [facility] Emergency Services Clinician
[2020-04-11] MEDS: Amitriptyline 50 MG TAB 150 MG PO (21:08)
[2020-04-11] MEDS: Ibuprofen 600 MG TAB PO (21:08)
[2020-04-11] MEDS: Nicotine 21 MG/24 HR PATCH TD (21:08)
[2020-04-11] MEDS: Acetaminophen 500 MG TAB 1000 MG PO (21:08)
[2020-04-11] MEDS: Mirtazapine 15 MG TAB PO (21:08)
[2020-04-11] MEDS: LORazepam 2 MG/ML VIAL 1 MG IVP (22:08)
[2020-04-11] MEDS: diazePAM 5 MG TAB (22:45)
[2020-04-11] MEDS: Methadone 5 MG TAB PO (23:39)
--- NOTE | 2020-04-12 00:09 | NUR.NOTE ---
Pt remained with 1:1 at bedside. During the course of the shift, the pt stated she was restless and her legs were cramping. Pt had received 1mg of IV ativan with no effect. In additional she received 5mg of PO valium also with no effect. Pt had her night time meds and APAP and Ibruprofen. After discussing the restlessness and crawling out of her skin the provider ordered PO Methadone at a lower dose than the pt receives daily. The pt at this time continues to be restless in the room with pacing. Pt has requested provider to bedside multiple times with different requests and questions. Will continue to monitor and update provider as needed.
[2020-04-12] MEDS: diazePAM 10 MG/2 ML SYR 5 MG IM (00:48)
[2020-04-12] MEDS: LORazepam 2 MG/ML VIAL IM (03:19)
[2020-04-12] MEDS: FLUoxetine 10 MG TAB PO (09:30)
[2020-04-12] MEDS: Methadone Liquid 10 MG/ML 76 MG PO ×2 (09:58→19:15)
--- NOTE | 2020-04-12 11:10 | PDOC.MHCN ---
Date of service: 04/12/20 Time of Service: 10:30 Mental Health Crisis Note Presenting Issue How did you arrive at the ED and why did you come: Client arrived to ED via ambulance due to concerns of suicidal ideations. Precipitating Factors Client denies suicidal ideations at this time. However, client reports having thoughts of going to sleep and not waking up. Disposition BEHAVIOR: Client was cooperative throughout this assessment EYE CONTACT: Client maintained good eye contact throughout the assessment MOOD: Client presented as depressed and tired AFFECT: Client presented with flat affect and dysthymic mood. APPETITE: Client reports having poor appetite SLEEP(trouble falling/staying asleep: Client reports difficulty falling and staying asleep. Plan Client is currently on voluntary status at [facility]. Client is agreeable to going for in-patient psychiatric treatment. [facility] Dietary Supervisor Peg has faxed over paperwork to [facility] as well as [facility]. Client will remain in [facility] on voluntary status to await placement for in-patient psychiatric treatment. Signature Clinician's Name/Title: Radha Caba Emergency Services Clinician
--- NOTE | 2020-04-12 12:04 | PDOC.CMSAFED ---
- If Service Date Differs Date of service: 04/12/20 Time of Service: 12:04 Care Management Safety Plan VOLUNTARY FOR INPATIENT PSYCHIATRIC STABILIZATION. Patient is appropriate in all interactions since arriving at [facility]; Patient has demonstrated appropriate coping and communication skills, has articulated her needs and concerns and is fully engaged during staff interactions. Safety plan has been established with patient, and care team, to adhere to patient goals, identify restrictions based on behavioral status, address nutrition, and determine allowed personal belongings, tools for hygiene and personal care. Determine level of activity including ambulation, level of supervision, visitors, and determine privileges based on behaviors and level of engagement by patient. SAFETY PLAN: 1. Will remain on suicide precautions and in paper clothes. 2. Will remain in room under direct supervision of one-on-one staff at all times provided by [employer]; KHUSHI, OPERATIONS MANAGER log haul operator. 3. May have paper cups, plates, finger foods as well as a metal spoon with which to eat meals. [facility] staff will be responsible for removing spoon once patient is done eating. 4. Follow [facility] Management of the Admitted Behavioral Health Patient policy. 5. Comfort bath system only while in the ED. If moved to Med/Surg, will be allowed to shower with supervision and at nursing discretion. 6. No personal belongings. 7. Visitors-No visitors at this time. 8. Activities: Soft tip markers, paper, television if available, and other activities at nursing discretion. 9. Bathroom privileges: While in the ED, must be accompanied by staff. If patient is moved to Med/Surg, she will be allowed to use the bathroom in her room without supervision. 10. Phone: Allowed use of hospital phone for incoming and outgoing phone calls to family members at treatment team discretion. 11. Due to VOLUNTARY status, if patient wishes to leave [facility], the [facility] wire worker must be contacted to re-evaluate patient prior to patient exiting the building. Patient is currently voluntarily at [facility] and seeking inpatient admission when a bed becomes available. [facility] Frontline Damper Fitter will continue seeking placement. Please contact the District Wildlife Manager Exercise Rider ([phone]) and [facility] Damper Fitter ([phone]) for any needed changes in the Safety Plan. Safety plan has been provided to interdepartmental care team.
--- NOTE | 2020-04-12 13:04 | PDOC.ERCMPRO ---
- If Service Date Differs Date of service: 04/12/20 Time of Service: 13:04 Care Management Progress Note S/O: Guero presented to the ED yesterday at the urging of her family due to increased depression with suicidal ideation without intent or plan. She is pleasant and easily engages in conversation when CM comes to meet with her. She shares the worsening of her depression was precipitated by the break-up of a relationship a few months ago and subsequent financial concerns. Guero is adamant that while she would be ok with not waking up in the morning, she would never purposely harm herself and names her children and parents as deterrents. Guero denies a history of suicide attempts, self-harming behaviors, or psychiatric hospitalizations. She does admit to a significant history of fentanyl use, with last use being two days ago. Guero enjoys going for walks with her dog, spending time with her adult children, and working at the [employer] on a part-time basis. CM will continue to follow. A: Guero is a 49 year old female who remains at [facility] awaiting a voluntary psych placement. P: CM coordinated referrals to [facility] and [facility]. All other psych hospitals are full. Guero will remain at [facility] while [facility] continues to seek a voluntary placement for her. CM will continue to follow.
--- NOTE | 2020-04-12 13:05 | HPE_ITS ---
Date of service: 04/12/20 Time of Service: 13:06 Assessment and Plan Assessment and plan (1) Depression: Status: Chronic Assessment and plan: medically cleared in the ED, on a hold for covid testing which is pending. continue home medication. [facility], behavioral management plan (2) Methadone maintenance therapy patient: Status: Acute Assessment and plan: continue methadone home dosing (3) Constipation due to opioid therapy: Status: Acute Assessment and plan: bowel management History of Present Illness History of Present Illness Chief Complaint: major depression Narrative: this is a 49 year old female who presents to the emergency department with the chief complaint of increased depression, generalized feeling unwell, described as severe and similar to prior episodes (worsening over the past year). She has been using fentanyl, last use the day prior to arrival, stating that she was cutting back. She was medically cleared and is awaiting inpatient psychiatric care pending a covid test. Review of Systems All systems reviewed & are unremarkable except as noted in HPI and below PFSH Medical History Abnormal uterine bleeding (09/08/15) Anxiety BMI less than 19,adult (03/29/17) Patient had 31 pound weight loss over the course of the year. Not dieting. TSH free T4 to be obtained. Depression Fatigue Gastroesophageal reflux disease without esophagitis (09/08/15) History of substance abuse Hyperlipidemia IUD (intrauterine device) in place (09/28/15) Mood changes (03/29/17) after insertion of Mirena IUD in 2015. removed 03/2017. Oral herpes simplex infection PTSD (post-traumatic stress disorder) Surgical History History of bilateral cataract extraction History of breast biopsy Benign (R) Breast, [place] [facility] [place] of left hand Family History Sister Substance abuse Lung cancer Depression Anxiety Brother Substance abuse Asthma Depression Anxiety Mother Anxiety Colon cancer Depression Daughter Asthma Other Heart disease Social History Smoking/Tobacco Use Status: Current every day Smoking risk assessment performed?: Yes Alcohol Intake: never Drug use: Occasionally Substance use type: marijuana and opiates Counseling provided: provider counseling and other Details: Duy [facility]INES q2w Details: No IV Drug Use. A few bags fentanyl daily recently 04/11/20 Adopted: No Caregiver/Support person: No Foster care: No Household members: significant other Housing: house Number of Children: 3 Communication Needs: None Do you need help understanding health information?: Never current occupation: UnEmployed Sexually active: Yes Do you think of yourself as: straight/heterosexual Current gender identity: female What is your relationship status?: Panel score (0-1 are the most socially isolated patients): 0 What type of physical activity do you participate in: none Seatbelt use: always Drive intox or ride w/intox speedboat driver: No Water heater temp set <120 deg: Yes Working smoke detector in home: Yes Fire extinguisher in home: Yes Carbon monox detector in home: Yes Do you feel safe at home: Yes Do you feel safe in your relationship?: Yes Meds Home Medications and Allergies Home Medications Medication Instructions Recorded Confirmed Type hydrocortisone 1 - 2 ea TOPICAL DAILY PRN PRN 04/09/14 04/11/20 History omeprazole 40 mg PO DAILY 04/13/14 04/11/20 History ketotifen fumarate 1 drp OPHTHALMIC PRN drp 05/31/14 04/11/20 History cholecalciferol (vitamin D3) 25 1,000 unit PO DAILY 07/23/19 04/11/20 History mcg (1,000 unit) tablet fluticasone propionate 50 1 spray VLADIMIR DAILY 07/23/19 04/11/20 History mcg/actuation nasal spray,suspension methadone 10 mg/5 mL oral solution 115 mg PO DAILY ml 07/23/19 04/11/20 History betamethasone dipropionate 0.05 % 1 applic TP BID PRN #45 gm 10/14/19 04/11/20 Rx topical cream polyethylene glycol 3350 17 17 gm PO BID #850 gm 10/14/19 04/11/20 Rx gram/dose oral powder cetirizine 10 mg tablet 10 mg PO BID #60 tab 12/01/19 04/11/20 Rx amitriptyline 75 mg tablet 150 mg PO QHS #180 tab 12/16/19 04/12/20 Rx fluoxetine 10 mg capsule 10 mg PO QAM #90 tab-cap 08/05/20 11/09/20 Rx mirtazapine 15 mg tablet 15 mg PO QHS #90 tab 01/06/20 04/11/20 Rx Allergies Allergy/AdvReac Type Severity Reaction Status Date / Time rizatriptan benzoate Allergy Intermediate Verified 04/11/20 16:03 [From [facility]] codeine AdvReac Intermediate nausea Verified 04/11/20 16:03 hydrocodone AdvReac Intermediate vomiting Verified 04/11/20 16:03 Exam Const General: cooperative and no acute distress Orientation: alert, awake and oriented x3 HENMT Head: normal to inspection, normocephalic and atraumatic Resp Effort & Inspection: normal respiratory effort Cardio Rate: regular rate Rhythm: regular rhythm Neuro General: patient alert, patient awake, patient oriented x3, moves all extremities and no focal motor deficits Extrem General: normal to inspection and full ROM Results Labs Result diagrams: 04/11/20 16:35 04/13/20 08:41 Labs: Laboratory Results - last 24 hr 04/11/20 04/11/20 04/11/20 16:30 16:30 16:35 WBC RBC Hgb Hct MCV MCH MCHC RDW Plt Count MPV Immature Gran % Neutrophils % Lymphocytes % Monocytes % Eosinophils % Basophils % Nucleated RBC % Absolute Neutrophils Absolute Lymphocytes Absolute Monocytes Absolute Eosinophils Absolute Basophils Sodium 142 Potassium 3.1 L Chloride 104 Carbon Dioxide 29.5 Anion Gap 8.5 BUN 6 L Creatinine 0.72 Estimated GFR/1.73 m2 >= 60.00 Glucose 108 H Calcium 8.9 Magnesium Total Bilirubin 0.3 AST 11 L ALT 13 L Alkaline Phosphatase 127 H Creatine Kinase Total Protein 7.4 Albumin 3.3 L TSH 0.41 Urine Color Yellow Urine Clarity Clear Urine pH 7.0 Ur Specific [place] 1.010 Urine Protein Negative Urine Ketones Negative Urine Blood Trace-intact H Urine Nitrite Negative Urine Bilirubin Negative Urine Urobilinogen 0.2 Ur Leukocyte Esterase Negative Urine RBC 0-2 Urine WBC 0-2 Ur Epithelial Cells Few Urine Crystals Negative Urine Bacteria Negative Urine Casts Negative Urine Mucus Negative Ur Culture Indicated? No Urine Glucose Negative Salicylates Urine Opiates Screen Negative Urine Methadone Screen Positive A Acetaminophen Ur Barbiturates Screen Positive A Ur Tricyclics Screen Positive A Ur Amphetamines Screen Negative U Benzodiazepines Scrn Negative Urine Cocaine Screen Positive A Ur THC Screen Negative Ethyl Alcohol < 3.0 COVID-19 PCR Nasopharyn COVID-19 PCR Ref Test Perform Site 04/11/20 04/11/20 04/11/20 16:35 16:35 16:35 WBC 6.18 RBC 4.91 Hgb 15.5 Hct 45.7 MCV 93.1 MCH 31.6 MCHC 33.9 RDW 12.9 Plt Count 345 MPV 9.2 Immature Gran % 0.5 Neutrophils % 73.9 Lymphocytes % 16.8 Monocytes % 7.9 Eosinophils % 0.3 Basophils % 0.6 Nucleated RBC % 0 Absolute Neutrophils 4.56 Absolute Lymphocytes 1.04 L Absolute Monocytes 0.49 Absolute Eosinophils 0.02 Absolute Basophils 0.04 Sodium Potassium Chloride Carbon Dioxide Anion Gap BUN Creatinine Estimated GFR/1.73 m2 Glucose Calcium Magnesium Total Bilirubin AST ALT Alkaline Phosphatase Creatine Kinase 53 Total Protein Albumin TSH Urine Color Urine Clarity Urine pH Ur Specific [place] Urine Protein Urine Ketones Urine Blood Urine Nitrite Urine Bilirubin Urine Urobilinogen Ur Leukocyte Esterase Urine RBC Urine WBC Ur Epithelial Cells Urine Crystals Urine Bacteria Urine Casts Urine Mucus Ur Culture Indicated? Urine Glucose Salicylates 6.4 Urine Opiates Screen Urine Methadone Screen Acetaminophen 8 Ur Barbiturates Screen Ur Tricyclics Screen Ur Amphetamines Screen U Benzodiazepines Scrn Urine Cocaine Screen Ur THC Screen Ethyl Alcohol COVID-19 PCR Nasopharyn COVID-19 PCR Ref Test Perform Site 04/11/20 04/11/20 16:35 19:10 WBC RBC Hgb Hct MCV MCH MCHC RDW Plt Count MPV Immature Gran % Neutrophils % Lymphocytes % Monocytes % Eosinophils % Basophils % Nucleated RBC % Absolute Neutrophils Absolute Lymphocytes Absolute Monocytes Absolute Eosinophils Absolute Basophils Sodium Potassium Chloride Carbon Dioxide Anion Gap BUN Creatinine Estimated GFR/1.73 m2 Glucose Calcium Magnesium 2.0 Total Bilirubin AST ALT Alkaline Phosphatase Creatine Kinase Total Protein Albumin TSH Urine Color Urine Clarity Urine pH Ur Specific [place] Urine Protein Urine Ketones Urine Blood Urine Nitrite Urine Bilirubin Urine Urobilinogen Ur Leukocyte Esterase Urine RBC Urine WBC Ur Epithelial Cells Urine Crystals Urine Bacteria Urine Casts Urine Mucus Ur Culture Indicated? Urine Glucose Salicylates Urine Opiates Screen Urine Methadone Screen Acetaminophen Ur Barbiturates Screen Ur Tricyclics Screen Ur Amphetamines Screen U Benzodiazepines Scrn Urine Cocaine Screen Ur THC Screen Ethyl Alcohol COVID-19 PCR Cancelled Nasopharyn COVID-19 PCR Cancelled Ref Test Perform Site Cancelled Last Vital Signs Temp 36.9 C 04/11/20 15:56 Pulse 91 H 04/11/20 15:56 Resp 16 11/09/20 15:56 BP 158/67 H 04/11/20 15:56 Pulse Ox 98 04/11/20 15:56 COVID-19 Screening Have you,or household,traveled outside [place] in last 14 days?: No Had IN PERSON contact w/suspected or confirmed C-19 person: No
[2020-04-12] MEDS: Nicotine 21 MG/24 HR PATCH TD (14:36)
[2020-04-12] MEDS: Acetaminophen 500 MG TAB 1000 MG PO ×2 (16:32→20:53)
[2020-04-12 17:38] VITALS: BP 150/61; PULSE 90; RESP 18; TEMP 36.7; O2SAT 98
--- NOTE | 2020-04-12 17:45 | RT.EKG_ITS ---
APPROVED REPORT Exam: Resting ECG Patient Location: E HR:83 bpm ECG Measurements Heart Rate 83 AXIS [place] 120 P 80 QRSd 85 QRS 82 QT 359 T 71 QTc 423 Conclusion Sinus rhythm...normal P axis, V-rate 60- 99 Probable left atrial enlargement...P >50mS, <-0.10mV V1
[2020-04-12] MEDS: diazePAM 5 MG TAB PO (18:40)
[2020-04-12 19:48] VITALS: BP 158/62; PULSE 103; RESP 20; O2SAT 98
[2020-04-12] MEDS: Ibuprofen 800 MG TAB PO (20:53)
[2020-04-12] MEDS: Amitriptyline 50 MG TAB 150 MG PO (20:53)
[2020-04-12] MEDS: Mirtazapine 15 MG TAB PO (20:53)
[2020-04-12 21:20] LABS: COVID-19 RT-PCR Result Not Detected
[2020-04-13] MEDS: Ibuprofen 800 MG TAB PO (07:26)
[2020-04-13] MEDS: Acetaminophen 500 MG TAB 1000 MG PO (07:26)
[2020-04-13] MEDS: Omeprazole 20 MG CAPCR 40 MG PO (07:27)
[2020-04-13] MEDS: FLUoxetine 10 MG TAB PO (08:36)
[2020-04-13] MEDS: Cetirizine 10 MG TAB PO (08:36)
[2020-04-13] MEDS: Methadone Liquid 10 MG/ML 76 MG PO (08:36)
[2020-04-13] MEDS: Cholecalciferol (Vitamin D3) 1,000 UNIT TAB 1000 UNITS PO (08:36)
[2020-04-13 08:59] LABS: Potassium 3.5 mmol/L (3.5-5.1)
[2020-04-13] MEDS: diazePAM 5 MG TAB PO (09:12)
== END 2020-04-13 11:33 | disposition short-term general hospital (02) ==
PROVIDERS: Physician Assistant; Emergency Provider Emergency Medicine; PCP Internal Medicine
DX: F11.13 Opioid abuse with withdrawal (principal); F32.9 Major depressive disorder, single episode, unspecified; R45.851 Suicidal ideations; F14.10 Cocaine abuse, uncomplicated; E87.6 Hypokalemia; R45.1 Restlessness and agitation; R07.89 Other chest pain; Z03.818 Encounter for observation for suspected exposure to other biological agents ruled out
CPT/HCPCS: 36415; 80053; 80307; 81025; 82550; 93005; 96361; 96365; 96372; 96375; 99222; 99281; 99285; U0003; 80320; 80329; 81003; 81015; 83735; 84132; 84443; 85025; 93010; J2060; J3360; J3480

== ENCOUNTER 2020-07-19 15:18 | Outpatient (CLI) | payer MEDICAID, SELFPAY ==
--- NOTE | 2020-07-19 15:15 | RT.EKG_ITS ---
APPROVED REPORT Exam: Resting ECG Patient Location: O HR:86 bpm ECG Measurements Heart Rate 86 AXIS [place] 138 P 82 QRSd 92 QRS 73 QT 352 T 55 QTc 422 Conclusion Sinus rhythm...normal P axis, V-rate 60- 99 Probable left atrial enlargement...P >50mS, <-0.10mV V1
== END 2020-07-19 15:19 | disposition home or self-care (01) ==
LOC: DI.KIM 15:18
PROVIDERS: PCP Internal Medicine; Visit Provider Internal Medicine
DX: F11.20 Opioid dependence, uncomplicated (principal)
CPT/HCPCS: 93010

== ENCOUNTER 2020-08-02 11:41 | Outpatient (CLI) | payer MEDICAID, SELFPAY ==
--- NOTE | 2020-08-02 11:30 | RT.EKG_ITS ---
APPROVED REPORT Exam: Resting ECG Patient Location: O HR:91 bpm ECG Measurements Heart Rate 91 AXIS [place] 130 P 70 QRSd 88 QRS 72 QT 369 T 46 QTc 453 Conclusion Sinus rhythm...normal P axis, V-rate 60- 99 Probable left atrial enlargement...P >50mS, <-0.10mV V1
== END 2020-08-02 11:42 | disposition home or self-care (01) ==
LOC: DI.KIM 11:42
PROVIDERS: PCP Internal Medicine; Visit Provider Internal Medicine
DX: Z51.81 Encounter for therapeutic drug level monitoring (principal); Z79.899 Other long term (current) drug therapy; F41.8 Other specified anxiety disorders
CPT/HCPCS: 93010

== ENCOUNTER 2020-08-23 15:08 | Outpatient (CLI) | payer MEDICAID, SELFPAY ==
--- NOTE | 2020-08-23 15:00 | RT.EKG_ITS ---
APPROVED REPORT Exam: Resting ECG Patient Location: O HR:81 bpm ECG Measurements Heart Rate 81 AXIS PA 138 P 52 QRSd 89 QRS 65 QT 354 T 52 QTc 413 Conclusion Sinus rhythm...normal P axis, V-rate 60- 99
== END 2020-08-23 15:09 | disposition home or self-care (01) ==
PROVIDERS: PCP Internal Medicine; Visit Provider Internal Medicine
DX: Z51.81 Encounter for therapeutic drug level monitoring (principal)
CPT/HCPCS: 93010